=== PATIENT | female | born 1965 | race African-American/Black ===

== ENCOUNTER 2018-01-14 11:09 | Inpatient (IN) | payer MEDICAID ==
[~2018-01-14] VITALS: Ht 170.2 cm; Wt 7.7 kg
[2018-01-14] MEDS ORDERED: ALBUTEROL (0.083%) 2.5MG/3ML NEB HHN STA (11:18)
[2018-01-14] MEDS ORDERED: IPRATROPIUM BROMIDE (0.02%) 0.5MG/2.5ML NEB HHN STA (11:18)
[2018-01-14] MEDS ORDERED: METHYLPREDNISOLONE SOD SUCC 125 MG/2 ML VIAL IV STA (11:18)
[2018-01-14 12:29] LABS: BASOPHILS % 1.2 % (0.0-2.0); HEMATOCRIT. 41.7 % (36.0-48.0); HEMOGLOBIN. 13.6 g/dL (12.0-16.0); LYMPHOCYTES % 25.7 % (20.0-50.0); MEAN CORPUSCULAR HEMOGLOBIN 26.7 pg (28.0-32.0); MEAN PLATELET VOLUME 8.4 fl (7.4-10.4); NEUTROPHILS % 64.1 % (40.0-76.0); PLATELET 172 x1000/uL (130-400); RED BLOOD CELL COUNT 5.08 mill/uL (4.2-5.4); RED CELL DISTRIBUTION WIDTH 14.5 % (11.6-14.6)
[2018-01-14 12:37] LABS: CHLORIDE 87 mEq/L (98-107)
[2018-01-14] MEDS ORDERED: MAGNESIUM 2 G PREMIX 50 ML IV ONE (12:45)
[2018-01-14] MEDS ORDERED: ASPIRIN 81MG TABLET PO ONE (13:30)
[2018-01-14] MEDS ORDERED: IPRATROPIUM/ALBUTEROL 0.5-3(2.5)MG/3ML NEB HHN PRN (14:45)
[2018-01-14] MEDS ORDERED: CLONIDINE 0.1MG TABLET PO PRN (14:45)
[2018-01-14] MEDS ORDERED: ONDANSETRON HCL 4MG/2ML INJ IV PRN (15:00)
[2018-01-14] MEDS ORDERED: ACETAMINOPHEN 325MG TABLET PO PRN (15:00)
[2018-01-14 21:15] VITALS: BP 113/73
[2018-01-14 22:38] VITALS: BP 113/73
[2018-01-14] MEDS: METHYLPREDNISOLONE SOD SUCC 40 MG/ML VIAL IV SCH (22:56)
[2018-01-15] VITALS: BP 111/67
[2018-01-15] MEDS: IPRATROPIUM/ALBUTEROL 0.5-3(2.5)MG/3ML NEB HHN SCH ×6 (00:49→21:07)
[2018-01-15 00:52] LABS: CREATINE KINASE MB FRACTION 8.2 ng/mL (0.5-3.6)
[2018-01-15 04:00] VITALS: BP 118/65
[2018-01-15] MEDS: METHYLPREDNISOLONE SOD SUCC 40 MG/ML VIAL IV SCH ×3 (06:22→21:18)
[2018-01-15 06:47] LABS: BASOPHILS % 0.3 % (0.0-2.0); HEMATOCRIT. 39.5 % (36.0-48.0); HEMOGLOBIN. 12.9 g/dL (12.0-16.0); LYMPHOCYTES % 11.8 % (20.0-50.0); MEAN CORPUSCULAR HEMOGLOBIN 26.7 pg (28.0-32.0); MEAN CORPUSCULAR VOLUME 81.9 fL (81.0-99.0); MEAN PLATELET VOLUME 8.7 fl (7.4-10.4); MONOCYTES % 4.2 % (2.0-8.0); NEUTROPHILS % 83.7 % (40.0-76.0); PLATELET 164 x1000/uL (130-400); RED BLOOD CELL COUNT 4.83 mill/uL (4.2-5.4); RED CELL DISTRIBUTION WIDTH 14.2 % (11.6-14.6)
[2018-01-15 06:50] LABS: CLARITY URINE CLEAR (CLEAR); COLOR URINE YELLOW (YELLOW); KETONES URINE NEGATIVE (NEGATIVE); LEUKOCYTE ESTERASE URINE NEGATIVE (NEGATIVE); NITRITE URINE NEGATIVE (NEGATIVE); OCCULT BLOOD URINE NEGATIVE (NEGATIVE); PH URINE 6.5 (4.5-8.0); PROTEIN URINE NEGATIVE (NEGATIVE); SPECIFIC GRAVITY URINE 1.011 (1.005-1.030); UROBILINOGEN URINE 0.2 E.U./dL (0.2-1.0)
[2018-01-15 06:55] LABS: CHLORIDE 93 mEq/L (98-107)
[2018-01-15 07:18] LABS: *BARBITURATES SCREEN URINE NEGATIVE (NEGATIVE); *BENZODIAZEPINES SCREEN URINE NEGATIVE (NEGATIVE); *COCAINE SCREEN URINE PRESUMTIVE POSITIVE (NEGATIVE); METHADONE URINE SCREEN NEGATIVE (NEGATIVE); OPIATES URINE SCREEN NEGATIVE (NEGATIVE); PHENCYCLIDINE URINE SCREEN NEGATIVE (NEGATIVE)
[2018-01-15 07:19] LABS: CANNABINOID URINE SCREEN NEGATIVE (NEGATIVE)
[2018-01-15 07:21] LABS: *AMPHETAMINES SCREEN URINE NEGATIVE (NEGATIVE)
[2018-01-15 08:00] VITALS: BP 96/60
[2018-01-15] MEDS ORDERED: AZITHROMYCIN 500 MG TABLET PO NR (10:30)
[2018-01-15 12:00] VITALS: BP 107/74
[2018-01-15] MEDS: BENZONATATE 100MG CAPSULE PO PRN ×2 (12:03→23:48)
[2018-01-15 16:00] VITALS: BP 113/87
[2018-01-15] MEDS ORDERED: MONTELUKAST SODIUM 10MG TABLET PO SCH (17:00)
[2018-01-15 20:00] VITALS: BP 108/72
[2018-01-15] MEDS: GUAIFENESIN 600MG ER TABLET PO SCH (21:52)
[2018-01-16] VITALS: BP 117/61
[2018-01-16] MEDS: IPRATROPIUM/ALBUTEROL 0.5-3(2.5)MG/3ML NEB HHN SCH ×4 (01:08→14:46)
[2018-01-16 04:00] VITALS: BP 124/82
[2018-01-16] MEDS: METHYLPREDNISOLONE SOD SUCC 40 MG/ML VIAL IV SCH ×2 (05:01→15:18)
[2018-01-16 07:01] LABS: BASOPHILS % 0.1 % (0.0-2.0); HEMATOCRIT. 41.5 % (36.0-48.0); HEMOGLOBIN. 13.3 g/dL (12.0-16.0); LYMPHOCYTES % 8.2 % (20.0-50.0); MEAN CORPUSCULAR HEMOGLOBIN 26.3 pg (28.0-32.0); MEAN CORPUSCULAR VOLUME 81.9 fL (81.0-99.0); MEAN PLATELET VOLUME 8.6 fl (7.4-10.4); MONOCYTES % 5.2 % (2.0-8.0); NEUTROPHILS % 86.5 % (40.0-76.0); PLATELET 231 x1000/uL (130-400); RED BLOOD CELL COUNT 5.07 mill/uL (4.2-5.4); RED CELL DISTRIBUTION WIDTH 14.6 % (11.6-14.6)
[2018-01-16 07:27] LABS: CHLORIDE 93 mEq/L (98-107)
[2018-01-16 08:00] VITALS: BP 107/74
[2018-01-16] MEDS ORDERED: AZITHROMYCIN 250 MG TABLET PO SCH (09:00)
[2018-01-16] MEDS: GUAIFENESIN 600MG ER TABLET PO SCH (09:15)
[2018-01-16 12:00] VITALS: BP 104/77
[2018-01-16] MEDS ORDERED: SODIUM POLYSTYRENE SULFONATE 15 G/60 ML BOT PO NR (12:30)
[2018-01-16] MEDS: BENZONATATE 100MG CAPSULE PO PRN (15:18)
[2018-01-16 15:33] VITALS: BP 104/77
[2018-01-16 16:00] VITALS: BP 112/75
[2018-01-16] MEDS ORDERED: METHYLPREDNISOLONE SOD SUCC 40 MG/ML VIAL IV SCH (17:00)
== END 2018-01-16 17:10 | disposition home or self-care (01) | DRG 133 ==
LOC: ER 11:21 → 5WST 13:23 → ENRESERV 19:59
PROVIDERS: ADMIT Internal Medicine; ATTEND Internal Medicine
DX: J96.20 Acute and chronic respiratory failure, unspecified whether with hypoxia or hypercapnia (principal); E87.8 Other disorders of electrolyte and fluid balance, not elsewhere classified; I24.8 Other forms of acute ischemic heart disease; J44.1 Chronic obstructive pulmonary disease with (acute) exacerbation; J45.901 Unspecified asthma with (acute) exacerbation; E87.1 Hypo-osmolality and hyponatremia; M62.82 Rhabdomyolysis; Z99.81 Dependence on supplemental oxygen; F17.210 Nicotine dependence, cigarettes, uncomplicated; J06.9 Acute upper respiratory infection, unspecified; I10 Essential (primary) hypertension; F14.90 Cocaine use, unspecified, uncomplicated; Z60.2 Problems related to living alone; Z71.6 Tobacco abuse counseling; Z71.51 Drug abuse counseling and surveillance of drug abuser; Z87.01 Personal history of pneumonia (recurrent)
CPT/HCPCS: 36415; 71045; 80048; 80305; 82140; 82550; 82553; 83036; 83880; 84484; 87070; 87804; 93005; 93306; 96365; 96375; 99291; J2920; J2930; J3475; J7611; J7620